=== PATIENT | female | born 1970 | race Caucasian/White ===

== ENCOUNTER 2017-04-18 12:09 | Emergency (ER) | payer BC, OTHER ==
[~2017-04-18] VITALS: Ht 160 cm; Wt 92.0 kg
[~2017-04-18 12:09] MED LIST: ACETADRYL 500-1 EACH PO; ACETAMINOPHEN500 M1 PO; ASTELIN137 MCG/0. NS; AZITHROMYCIN250 MG1 PO; BACTRIM,SEPT1 TABLET PO; BENADRYL ALLERG25 MG PO; BENADRYL25 MG PO; BENADRYL50 MG PO; BENTYL10 MG PO; BENTYL20 MG PO; CARAFATE1 GM PO; CETIRIZINE HCL10 M2 PO; CYMBALTA60 MG PO; Cymbalta PO; DICYCLOMINE HCL10 MG PO; DILAUDID2 MG PO; DITROPAN XL10 MG PO; Daily TPN Order IV; ENDOCET 5-3251 EACH PO; FENOFIBRATE54 M1 PO; FLAGYL500 MG PO; FLEXERIL10 MG PO; FLONASE16 G1 BOTH NARES; HYDROCODON-ACE1 EAC7 PO; IMODIUM MS REL1 EACH PO; KEFLEX500 MG PO; LEVOTHROID50 MCG PO; LEVOTHYROXINE50 MCG PO; LIDODERM 5% P1 PATCH TD; MAALOX PLUS X-150 ML PO; MACROBID100 MG PO; NEXIUM40 MG PO; NORCO 5/3251 TABLET PO; OMEPRAZOLE40 M1 PO; OXYCODONE HCL15 MG PO; PANTOPRAZOLE SO40 MG PO; PAROXETINE HCL40 MG PO; PEPCID40 MG PO; PERCOCET 5/31 TABLET PO; PERCOCET PO; PHENERGAN25 MG PR; PREDNISONE20 MG PO; PRILOSEC40 MG PO; PROBIOTIC1 EACH PO; PROMETHAZI25 MG/1 ML PO; PROMETHAZINE HC25 M1 PO; PROMETHAZINE HC25 M1 PR; PROMETHAZINE12.5 M1 IV; PROTONIX40 MG PO; Pepcid PO; Percocet 5/325,Endoc PO; RANITIDINE HCL150 MG PO; REGLAN10 MG PO; ROBAXIN750 MG PO; SIMVASTATIN40 M1 PO; SUCRALFATE1 GM PO; SYNTHROID50 MCG PO; TALADINE300 MG PO; TRAZODONE HCL100 MG PO; TYLENOL ARTHRI650 MG PO; TYLENOL EXTRA500 MG PO; TYLENOL REGULA325 MG PO; Tylenol Extra Streng PO; ULTRAM50 MG PO; VANCOCIN 125 M125 MG PO; VITAMIN D5000 UNI1 PO; VOLTAREN 1% GE100 GM TP; Vancocin Oral Soluti PO; Vancocin PO; Vicodin,Norco 5/325 PO; ZANTAC150 MG PO; ZITHROMAX Z-PA250 MG PO; ZOFRAN ODT4 MG PO; ZOFRAN4 MG PO; ZOFRAN8 MG PO; ZUPLENZ4 MG PO; [UNRECOGNIZED DRUG - REMARK] PO
[2017-04-18 14:15] LABS: BASOPHIL COUNT 0.1 K/uL (0-0.1); EOSINOPHIL (%) 0.3 % (0-5); HEMATOCRIT 39.7 % (36.0-46.0); IMMATURE GRANULOCYTE (%) 0.6 % (0.0-0.7); IMMATURE GRANULOCYTE COUNT 0.1 K/uL; INSTRUMENT ABS NEUTROPHIL CT 10.3 K/uL; LYMPHOCYTE COUNT 0.9 K/uL (1.0-2.8); MCH 29.7 PG (29.0-34.0); MCHC 31.5 G/DL (30.0-36.0); MCV 94.3 FL (83-99); MEAN PLAT.VOLUME 8.8 uM^3 (9.5-12.4); MONOCYTE (%) 3.9 % (3-12); MONOCYTE COUNT 0.5 K/uL (0-0.8); NEUTROPHIL (%) 87.1 % (45-76); NEUTROPHIL COUNT 10.3 K/uL (1.8-6.4); PLATELET COUNT 497 K/uL (156-360); RBC DIS.WIDTH-CV 13.8 % (11.8-14.6); RBC DIS.WIDTH-SD 47.7 % (39-53); RED BLOOD COUNT 4.21 M/uL (3.80-5.20); WHITE BLOOD COUNT 11.8 K/uL (4.1-10.2)
[2017-04-18 14:23] LABS: CHLORIDE 105 mEq/L (99-109); POTASSIUM 4.3 mEq/L (3.7-5.4); SODIUM 140 mEq/L (136-147)
[2017-04-18 14:25] LABS: GLUCOSE 121 mg/dL (70-99)
[2017-04-18 14:26] LABS: ANION GAP 17 MEQ/L (2-14)
[2017-04-18 14:27] LABS: TOTAL BILIRUBIN 0.3 mg/dL (0.0-1.0)
[2017-04-18 14:29] LABS: ALKALINE PHOSPHATASE 72 IU/L (3-129); GFR ESTIMATE (CALCULATED) > 59 mL/min/
[2017-04-18 14:30] LABS: UREA NITROGEN (BUN) 16 mg/dL (9-23)
[2017-04-18 14:32] LABS: LIPASE 34 U/L (1.0-51.0)
[2017-04-18 14:38] LABS: QUANTITATIVE HCG < 4.0 MIU/ML
[2017-04-18] MEDS ORDERED: PHENERGAN25 MG PR (19:12)
[2017-04-18] MEDS ORDERED: LORTAB 10-3251 EACH PO (19:12)
[2017-04-18 20:20] LABS: C DIFF TOXIN NEGATIVE (NEGATIVE)
[2017-04-18 20:22] LABS: PROBE CHECK PASS; SPECIMEN PROCESSING CONTROL PASS
[2017-04-18 21:06] VITALS: BP 148/82
== END 2017-04-18 21:07 | disposition home or self-care (01) ==
LOC: EME 12:09
PROVIDERS: Emergency Medicine
DX: R19.7 Diarrhea, unspecified (principal); R10.9 Unspecified abdominal pain; K21.9 Gastro-esophageal reflux disease without esophagitis; Q79.6 Ehlers-Danlos syndromes
CPT/HCPCS: 74177; 80053; 81003; 83690; 84702; 85025; 87493; 99281; 99285; C9113; J2405; J2550; J3010; J7030